=== PATIENT | male | born 1990 | race Caucasian/White ===

== ENCOUNTER 2023-03-02 10:53 | Emergency (ER) | payer BC ==
[~2023-03-02] VITALS: Ht 172.7 cm; Wt 100.7 kg
[2023-03-02] MEDS ORDERED: CLIN150C17 PO (11:00)
[2023-03-02] MEDS ORDERED: IBUP200T46 PO (11:00)
[2023-03-02 11:55] LABS: BASO % 0.3 % (0.0-1.0); EOS # 0.2 10^3/uL (0.0-0.5); EOS % 1.4 % (0.0-3.0); HEMATOCRIT 43.7 % (42.0-52.0); HEMOGLOBIN 14.9 g/dl (13.5-17.5); LYMPH # 1.8 10^3/uL (1.5-5.0); LYMPH % 13.7 % (24.0-44.0); MEAN CORPUSCULAR HGB CONC 34.1 g/dl (32.0-36.5); MONO # 1.2 10^3/uL (0.0-0.8); MONO % 9.6 % (2.0-8.0); NEUTROPHILS # 9.5 10^3/uL (1.5-8.5); NEUTROPHILS % 74.5 % (36.0-66.0); PLATELET COUNT, AUTOMATED 191 10^3/uL (150-450); RED BLOOD COUNT 4.65 10^6/uL (4.30-6.10); WHITE BLOOD COUNT 12.8 10^3/uL (4.0-10.0)
[2023-03-02 12:00] LABS: ERYTHROCYTE SEDIMENTATION RATE 17 mm/hr (0-15)
[2023-03-02 12:16] LABS: BLOOD UREA NITROGEN 9 MG/DL (9-23); CALCIUM LEVEL 9.3 MG/DL (8.5-10.1); CARBON DIOXIDE LEVEL 27 MMOL/L (20-31); CHLORIDE LEVEL 106 MMOL/L (98-107); CREATININE FOR GFR 0.73 MG/DL (0.70-1.30); GLOMERULAR FILTRATION RATE > 60.0 (>60); GLUCOSE, FASTING 94 MG/DL (60-100); POTASSIUM SERUM 4.3 MMOL/L (3.5-5.1); SODIUM LEVEL 138 MMOL/L (136-145)
[2023-03-02] MEDS ORDERED: ISOVUE-370 76% 100ML VIAL As Ordered ONE (12:24)
[2023-03-02] MEDS ORDERED: BENZOCAINE 20% GEL 9GM TUBE (ANBESOL MAX STRENGTH) TOP ONE (13:30)
[2023-03-02] MEDS ORDERED: LIDOCAINE 2% W/ EPINEPHRINE 1.7 ML DENTAL INJ SM ONE (13:30)
[2023-03-02] MEDS ORDERED: KETOROLAC 30 MG/ML 1ML VIAL IV ONE (14:00)
[2023-03-02 14:20] VITALS: BP 132/102; TEMP 98.7; O2SAT 100
[2023-03-02] MEDS ORDERED: LEVO1TAB40 PO (14:29)
[2023-03-02] MEDS ORDERED: PERI0.126 PO (14:29)
[2023-03-02] MEDS ORDERED: METR-265 PO (14:29)
== END 2023-03-02 14:48 | disposition home or self-care (01) ==
LOC: M ED 10:53
DX: K04.7 Periapical abscess without sinus (principal); Z88.0 Allergy status to penicillin
CPT/HCPCS: 41800; 64400; 70491; 80048; 85025; 85652; 86140; 87040; 96374; 99283; J1885; Q9967

== ENCOUNTER 2025-04-28 23:47 | Inpatient (IN) | payer BC, OTHER, SELFPAY ==
[~2025-04-28] VITALS: Ht 175.3 cm; Wt 125.4 kg
[~2025-04-28 23:47] MED LIST: CLIN150C17 PO; IBUP200T46 PO; LEVO1TAB40 PO; METR-265 PO; PERI0.126 PO
[2025-04-29 00:33] LABS: PLATELET COUNT, AUTOMATED 240 10^3/uL (150-450)
[2025-04-29 00:47] LABS: AMPHETAMINES LEVEL URINE NEGATIVE (NEGATIVE); BARBITURATES URINE NEGATIVE (NEGATIVE); BENZODIAZEPINES URINE NEGATIVE (NEGATIVE); COCAINE METABOLITE URINE NEGATIVE (NEGATIVE); METHADONE URINE NEGATIVE (NEGATIVE)
[2025-04-29 00:48] LABS: CANNABINOIDS URINE NEGATIVE (NEGATIVE); OPIATES URINE NEGATIVE (NEGATIVE); PHENCYCLIDINE URINE NEGATIVE (NEGATIVE)
[2025-04-29 01:02] LABS: ETHYL ALCOHOL (ETHANOL) 0.087 % (0.000-0.010)
[2025-04-29 01:03] LABS: SALICYLATE LEVEL < 3.0 MG/DL (<30)
[2025-04-29 01:04] LABS: ALT/SGPT 33 U/L (7.0-40); AST/SGOT 51 U/L (<34); CALCIUM LEVEL 9.8 MG/DL (8.5-10.1); CARBON DIOXIDE LEVEL 24 MMOL/L (20-31); CHLORIDE LEVEL 103 MMOL/L (98-107); CREATININE FOR GFR 1.08 MG/DL (0.70-1.30); GLOMERULAR FILTRATION RATE > 90.0 (>60); POTASSIUM SERUM 3.6 MMOL/L (3.5-5.1); SODIUM LEVEL 139 MMOL/L (136-145)
[2025-04-29] MEDS ORDERED: ACETAMINOPHEN 325 MG TAB PO PRN (03:55)
[2025-04-29] MEDS ORDERED: MAALOX 30 ML SUSP *UDC PO PRN (03:55)
[2025-04-29] MEDS ORDERED: traZODone 50 MG TAB PO PRN (03:55)
[2025-04-29] MEDS ORDERED: HALOPERIDOL 5 MG TAB PO PRN (03:55)
[2025-04-29] MEDS ORDERED: LORazepam 1 MG TAB PO PRN (03:55)
[2025-04-29] MEDS ORDERED: IBUPROFEN 400 MG TAB PO PRN (03:55)
[2025-04-29] MEDS ORDERED: MOM 30 ML SUSPENSION UDC PO PRN (03:55)
[2025-04-29] MEDS: HALOPERIDOL LACTATE 5 MG/ML VIAL IM ONE (05:40)
[2025-04-29] MEDS: diphenhydrAMINE 50 MG/ML VIAL IM ONE (05:41)
[2025-04-29] MEDS ORDERED: HOME MED LIST COMPLETE! XX SCH (08:35)
[2025-04-29 08:40] VITALS: BP 134/94; TEMP 97.7; O2SAT 98
[2025-04-29] MEDS: risperiDONE 0.5 MG TAB PO SCH (09:00)
[2025-04-29] MEDS ORDERED: NICOTINE 14 MG/24 HR TRANSDERMAL TD PRN (12:20)
[2025-04-30 06:44] VITALS: BP 137/74; TEMP 98.2; O2SAT 96
[2025-04-30] MEDS: NICOTINE POLACRILEX 2 MG GUM PO PRN (15:20)
[2025-04-30 15:25] VITALS: BP 135/89; TEMP 97.6; O2SAT 97
[2025-05-01 06:33] VITALS: BP 137/92; TEMP 97.9; O2SAT 98
[2025-05-01 15:12] VITALS: BP 137/80; TEMP 97.6; O2SAT 97
[2025-05-02 06:32] VITALS: BP 113/82; TEMP 97.6; O2SAT 98
[2025-05-02 16:21] VITALS: BP 144/90; TEMP 97.4; O2SAT 99
[2025-05-02] MEDS: risperiDONE 0.5 MG TAB PO SCH (20:32)
[2025-05-03 06:26] VITALS: BP 122/76; TEMP 98.5; O2SAT 99
[2025-05-03 15:49] VITALS: BP 129/87; TEMP 97.1; O2SAT 96
[2025-05-04 06:30] VITALS: BP 123/75; TEMP 97.8; O2SAT 98
[2025-05-04 15:01] VITALS: BP 130/78; TEMP 97.2; O2SAT 97
[2025-05-05 06:43] VITALS: BP 132/64; TEMP 97.6; O2SAT 99
[2025-05-05] MEDS: LITHIUM CARBONATE 600 MG CAP PO SCH (20:42)
[2025-05-06 06:56] VITALS: BP 146/96; TEMP 96.8; O2SAT 100
[2025-05-06 15:01] VITALS: BP 144/92; TEMP 98.1; O2SAT 98
[2025-05-07 06:34] VITALS: BP 116/70; TEMP 97.9; O2SAT 100
[2025-05-07 16:44] VITALS: BP 135/90; TEMP 97.5; O2SAT 96
[2025-05-08 15:36] VITALS: BP 144/94; TEMP 97; O2SAT 97
[2025-05-09 06:32] VITALS: BP 148/91; TEMP 98.3; O2SAT 96
[2025-05-09 14:52] VITALS: BP 144/88; TEMP 97.6; O2SAT 98
[2025-05-10 06:49] VITALS: BP 135/90; TEMP 98.7; O2SAT 97
[2025-05-10 15:19] VITALS: BP 131/91; TEMP 98.1; O2SAT 97
[2025-05-11 06:59] VITALS: BP 141/84; TEMP 97.1; O2SAT 96
[2025-05-11 16:31] VITALS: BP 128/90; TEMP 97.8; O2SAT 96
[2025-05-12 06:31] VITALS: BP 136/84; TEMP 97; O2SAT 98
[2025-05-12 15:38] VITALS: BP 152/80; TEMP 97.1; O2SAT 98
[2025-05-14 06:43] VITALS: BP 123/77; TEMP 97.8; O2SAT 97
[2025-05-14] MEDS: RISPERIDONE 1 MG TAB PO SCH (20:30)
[2025-05-15 06:34] VITALS: BP 134/81; TEMP 97.4; O2SAT 98
[2025-05-16 15:23] VITALS: BP 135/86; TEMP 97.7; O2SAT 97
[2025-05-17 06:19] VITALS: BP 135/88; TEMP 97.4; O2SAT 97
[2025-05-17 17:39] VITALS: BP 142/88; TEMP 97.3
[2025-05-18 06:25] VITALS: BP 135/86; TEMP 98.2; O2SAT 100
[2025-05-18 15:49] VITALS: BP 147/93; TEMP 97.6; O2SAT 98
[2025-05-19 06:20] VITALS: BP 118/75; TEMP 97.3; O2SAT 100
[2025-05-19 15:36] VITALS: BP 127/86; TEMP 97.1; O2SAT 97
[2025-05-20 15:37] VITALS: BP 133/75; TEMP 97.8; O2SAT 98
[2025-05-21 06:31] VITALS: BP 131/71; TEMP 97.5; O2SAT 98
[2025-05-21 16:06] VITALS: BP 136/78; TEMP 97.2; O2SAT 98
[2025-05-22 06:42] VITALS: BP 128/88; TEMP 98.1; O2SAT 99
[2025-05-22 15:02] VITALS: BP 137/89; TEMP 97.4; O2SAT 98
[2025-05-23 06:43] VITALS: BP 128/95; TEMP 97.4; O2SAT 99
[2025-05-23 15:54] VITALS: BP 136/89; TEMP 97.7; O2SAT 96
[2025-05-24 06:35] VITALS: BP 155/92; TEMP 97.4; O2SAT 98
[2025-05-24 15:27] VITALS: BP 136/85; TEMP 97.5; O2SAT 96
[2025-05-25 06:49] VITALS: BP 138/80; TEMP 97.3; O2SAT 95
[2025-05-25 15:17] VITALS: BP 144/88; TEMP 97.8; O2SAT 98
[2025-05-26 06:47] VITALS: BP 124/81; TEMP 97; O2SAT 99
[2025-05-26] MEDS ORDERED: OLANZapine INTRAMUSCULAR 10MG VIAL IM SCH (12:45)
[2025-05-26] MEDS: OLANZapine 10 MG TAB PO SCH (12:45)
[2025-05-26] MEDS ORDERED: OLANZapine INTRAMUSCULAR 10MG VIAL IM PRN (12:55)
[2025-05-26] MEDS: OLANZapine INTRAMUSCULAR 10MG VIAL IM PRN (14:16)
[2025-05-26 16:51] VITALS: BP 133/91; TEMP 97.2; O2SAT 96
[2025-05-28 06:40] VITALS: BP 135/90; TEMP 96.7; O2SAT 98
[2025-05-29 06:39] VITALS: BP 133/80; TEMP 97.2; O2SAT 99
[2025-05-29 15:54] VITALS: BP 132/92; TEMP 97.4; O2SAT 98
[2025-05-30 15:09] VITALS: BP 133/87; TEMP 97; O2SAT 97
[2025-05-31 15:35] VITALS: BP 141/90; TEMP 97.3; O2SAT 96
[2025-06-01 15:35] VITALS: BP 136/90; TEMP 98.3; O2SAT 97
[2025-06-02 06:40] VITALS: BP 125/86; TEMP 97.2; O2SAT 100
[2025-06-02] MEDS ORDERED: OLAN1TAB20 PO (14:45)
== END 2025-06-02 15:20 | disposition home or self-care (01) | DRG 751 ==
LOC: M ED 23:47 → M ED INP 04-29 03:53 → M PSY 04-29 08:36
PROVIDERS: ADMIT Psychiatry & Neurology Neurology; ATTEND General Practice
DX: F29 Unspecified psychosis not due to a substance or known physiological condition (principal); F31.2 Bipolar disorder, current episode manic severe with psychotic features; Z78.1 Physical restraint status; F41.9 Anxiety disorder, unspecified; F17.290 Nicotine dependence, other tobacco product, uncomplicated; Z88.0 Allergy status to penicillin; Z56.0 Unemployment, unspecified